=== PATIENT | male | born 1970 | race Caucasian/White ===

== ENCOUNTER 2024-01-30 17:06 | Emergency (ER) | payer MEDICAID ==
[2024-01-30 17:39] LABS: BASOPHILS ABSOLUTE AUTO 0.1 K/mm3 (0.0-0.2); BASOPHILS PERCENT AUTO 1.5 % (0.0-1.0); EOSINOPHILS PERCENT AUTO 0.5 % (0.0-6.0); HEMATOCRIT 46.4 % (42.0-52.0); HEMOGLOBIN 16.3 gm/dl (14.0-18.0); IMMATURE GRAN ABSOLUTE AUTO 0.01 K/mm3 (0.00-0.05); IMMATURE GRAN PERCENT AUTO 0.2 % (0.0-0.4); LYMPHOCYTES ABSOLUTE AUTO 2.1 K/mm3 (1.0-4.8); LYMPHOCYTES PERCENT AUTO 34.6 % (24.0-44.0); MEAN CORPUSCULAR HEMOGLOBIN 32.1 pg (28.0-32.0); MEAN CORPUSCULAR HGB CONC 35.1 g/dl (32.0-36.0); MEAN CORPUSCULAR VOLUME 91.5 fl (83.0-99.0); MEAN PLATELET VOLUME 9.7 fl (9.4-12.4); MONOCYTES ABSOLUTE AUTO 0.7 K/mm3 (0.0-0.8); MONOCYTES PERCENT AUTO 10.6 % (0.0-8.0); NEUTROPHILS ABSOLUTE AUTO 3.2 K/mm3 (1.8-7.7); NEUTROPHILS PERCENT AUTO 52.6 % (41.0-71.0); PLATELET COUNT,PLT 202 K/mm3 (150-400); RED BLOOD CELL COUNT 5.07 M/mm3 (4.52-5.90); WHITE BLOOD CELL COUNT,WBC 6.15 K/mm3 (3.9-11.3)
[2024-01-30 18:08] LABS: A/G RATIO 0.9 (1-2); ALBUMIN 3.6 g/dl (3.4-5.0); ANION GAP 19.4 (5-15); BILIRUBIN TOTAL 0.5 mg/dL (0.2-1.0); CALCIUM 8.2 mg/dL (8.5-10.1); EST CRCL DRUG DOSING (CG) 79.87 mL/min; MAGNESIUM 1.7 mg/dL (1.8-2.4); POTASSIUM,K 3.4 mEq/L (3.5-5.1); PROTEIN TOTAL,TP 7.7 g/dl (6.4-8.2)
[2024-01-30] MEDS: Sodium Chloride 0.9% 10 ML Syringe FLUSH PRN (19:28)
[2024-01-30] MEDS: Sodium Chloride 0.9% 45 ML IV SCH (19:28)
[2024-01-30] MEDS: Iopamidol 755 Mg/ML 100 ML Bottle IVPUSH ONE (19:28)
[2024-01-30] MEDS: Azithromycin 250 MG Tab PO ONE (20:26)
[2024-01-30] MEDS: Albuterol 6.7 GM Inhaler INH ONE (20:26)
== END 2024-01-30 20:35 | disposition home or self-care (01) ==
LOC: JD.ED 17:06
DX: J40 Bronchitis, not specified as acute or chronic (principal); R07.9 Chest pain, unspecified; I10 Essential (primary) hypertension; F17.210 Nicotine dependence, cigarettes, uncomplicated; Z79.2 Long term (current) use of antibiotics
CPT/HCPCS: 36415; 71045; 71045-26; 71275; 71275-26; 80053; 83735; 84484; 85025; 85379; 87428-QW; 93005; 99285; A9270-GY; J3490; Q9967

== ENCOUNTER 2024-08-23 13:07 | Emergency (ER) | payer SELFPAY ==
[2024-08-23 13:42] LABS: BASOPHILS ABSOLUTE AUTO 0.1 K/mm3 (0.0-0.2); BASOPHILS PERCENT AUTO 1.4 % (0.0-1.0); EOSINOPHILS ABSOLUTE AUTO 0.1 K/mm3 (0.0-0.4); HEMATOCRIT 46.3 % (42.0-52.0); HEMOGLOBIN 16.6 gm/dl (14.0-18.0); IMMATURE GRAN ABSOLUTE AUTO 0.01 K/mm3 (0.00-0.05); IMMATURE GRAN PERCENT AUTO 0.2 % (0.0-0.4); LYMPHOCYTES ABSOLUTE AUTO 2.3 K/mm3 (1.0-4.8); LYMPHOCYTES PERCENT AUTO 39.4 % (24.0-44.0); MEAN CORPUSCULAR HEMOGLOBIN 33.3 pg (28.0-32.0); MEAN CORPUSCULAR HGB CONC 35.9 g/dl (32.0-36.0); MEAN CORPUSCULAR VOLUME 92.8 fl (83.0-99.0); MEAN PLATELET VOLUME 9.6 fl (9.4-12.4); MONOCYTES ABSOLUTE AUTO 0.5 K/mm3 (0.0-0.8); MONOCYTES PERCENT AUTO 8.1 % (0.0-8.0); NEUTROPHILS ABSOLUTE AUTO 2.9 K/mm3 (1.8-7.7); NEUTROPHILS PERCENT AUTO 49.9 % (41.0-71.0); PLATELET COUNT,PLT 200 K/mm3 (150-400); RED BLOOD CELL COUNT 4.99 M/mm3 (4.52-5.90); WHITE BLOOD CELL COUNT,WBC 5.89 K/mm3 (3.9-11.3)
[2024-08-23] MEDS: Albuterol/Ipratropium 3.0-0.5 MG/3 ML Neb Soln NEB ONE (13:44)
[2024-08-23 14:07] LABS: ALBUMIN 3.8 g/dl (3.4-5.0); ANION GAP 19.5 (5-15); BILIRUBIN TOTAL 0.5 mg/dL (0.2-1.0); BUN/CREATININE RATIO 14.4 (14-18); CALCIUM 8.4 mg/dL (8.5-10.1); CREATININE 0.9 mg/dL (0.7-1.3); EST CRCL DRUG DOSING (CG) 84.67 mL/min; MAGNESIUM 1.7 mg/dL (1.8-2.4); POTASSIUM,K 3.5 mEq/L (3.5-5.1); PROTEIN TOTAL,TP 7.7 g/dl (6.4-8.2)
[2024-08-23] MEDS: Azithromycin 250 MG Tab PO ONE (14:18)
[2024-08-23] MEDS: Lisinopril 20 MG Tab PO STA (14:18)
[2024-08-23] MEDS: predniSONE 20 MG Tab PO ONE (14:19)
[2024-08-23] MEDS ORDERED: Sodium Chloride 0.9% 100 ML IV SCH (15:15)
[2024-08-23] MEDS: Iopamidol 755 Mg/ML 100 ML Bottle IVPUSH ONE (15:22)
[2024-08-23] MEDS: LORazepam 2 MG/ML SDV IVPUSH ONE (15:34)
[2024-08-23] MEDS: Sodium Chloride 0.9% 1,000 ML IV SCH (15:34)
== END 2024-08-23 16:40 | disposition home or self-care (01) ==
LOC: JD.ED 13:07
DX: J44.0 Chronic obstructive pulmonary disease with (acute) lower respiratory infection (principal); J20.9 Acute bronchitis, unspecified; F17.210 Nicotine dependence, cigarettes, uncomplicated; I10 Essential (primary) hypertension; E78.00 Pure hypercholesterolemia, unspecified; Z91.148 Patient's other noncompliance with medication regimen for other reason; Z79.899 Other long term (current) drug therapy; Z88.0 Allergy status to penicillin
CPT/HCPCS: 36415; 71045; 71275; 80053; 83735; 83880; 84484; 85025; 85379; 93005; 94640; 96374; 99285; A9270; J2060; J7030; J7512; J7620; Q9967

== ENCOUNTER 2024-10-30 12:55 | Inpatient (IN) | payer BC ==
[2024-10-30 14:11] LABS: BASOPHILS ABSOLUTE AUTO 0.1 K/mm3 (0.0-0.2); BASOPHILS PERCENT AUTO 1.7 % (0.0-1.0); EOSINOPHILS ABSOLUTE AUTO 0.1 K/mm3 (0.0-0.4); EOSINOPHILS PERCENT AUTO 2.1 % (0.0-6.0); IMMATURE GRAN ABSOLUTE AUTO 0.00 K/mm3 (0.00-0.05); IMMATURE GRAN PERCENT AUTO 0.0 % (0.0-0.4); LYMPHOCYTES ABSOLUTE AUTO 2.6 K/mm3 (1.0-4.8); LYMPHOCYTES PERCENT AUTO 48.9 % (24.0-44.0); MEAN PLATELET VOLUME 9.9 fl (9.4-12.4); MONOCYTES ABSOLUTE AUTO 0.3 K/mm3 (0.0-0.8); MONOCYTES PERCENT AUTO 4.9 % (0.0-8.0); NEUTROPHILS ABSOLUTE AUTO 2.3 K/mm3 (1.8-7.7); NEUTROPHILS PERCENT AUTO 42.4 % (41.0-71.0); NRBC ABSOLUTE 0.00 (0.00-0.02); NRBC PERCENT 0.0 % (0.0-0.2); PLATELET COUNT,PLT 314 K/mm3 (150-400); RED BLOOD CELL COUNT 3.95 M/mm3 (4.52-5.90); WHITE BLOOD CELL COUNT,WBC 5.36 K/mm3 (3.9-11.3)
[2024-10-30 14:24] LABS: D-DIMER QUANTITATIVE 0.24 mg/L (0.19-0.50); INR 1.03
[2024-10-30 14:25] LABS: PTT,PARTIAL THROMBOPLSTIN TIME 24.2 SECONDS (21.7-31.4)
[2024-10-30 14:39] LABS: A/G RATIO 1.0 (1-2); ALANINE AMINOTRANSFERASE,ALT 29.0 U/L (16-63); ASPARTATE AMNIOTRANSFERASE,AST 32.0 U/L (15-37); BILIRUBIN TOTAL 0.3 mg/dL (0.2-1.0); BLOOD UREA NITROGEN,BUN 73.0 mg/dL (7-18); CARBON DIOXIDE,CO2 25.0 mEq/L (21-32); CHLORIDE,CL 100.0 mEq/L (98-107); CREATININE 4.1 mg/dL (0.7-1.3); EST CRCL DRUG DOSING (CG) 19.26 mL/min; ESTIMATED GFR 16.0 mL/min (>60); ETHANOL BLOOD MEDICAL 0.22 gm% (0.00); GLUCOSE RANDOM 101.0 mg/dL (70-99); POTASSIUM,K 5.5 mEq/L (3.5-5.1); PROTEIN TOTAL,TP 7.9 g/dl (6.4-8.2); SODIUM,NA 138.0 mEq/L (136-145); TROPONIN I HIGH SENSITIVITY 8.0 pg/mL (<=76)
[2024-10-30 16:03] LABS: BUPRENORPHINE SCREEN,URINE NEGATIVE (CUTOFF=10); METHADONE SCREEN, URINE NEGATIVE (CUT0FF=200); METHAMPHETAMINES SCREEN, URINE NEGATIVE (CUTOFF=500); OXYCODONE SCREEN,URINE NEGATIVE (CUT0FF=100); THC SCREEN,URINE 20 NG/ML NEGATIVE (CUTOFF=50)
[2024-10-30 16:05] LABS: AMPHETAMINES SCREEN, URINE NEGATIVE (CUTOFF=500)
[2024-10-30] MEDS: Insulin Regular, Human 100 Units/ML 10 ML Vial IV ONE (16:16)
[2024-10-30] MEDS: 50% Dextrose in Water 50 ML Syringe IVPUSH ONE (16:17)
[2024-10-30 16:22] LABS: APPEARANCE,URINE CLEAR (Clear); GLUCOSE,URINE NEGATIVE (Negative); OCCULT BLOOD,URINE 1+ (Negative)
[2024-10-30 16:29] LABS: EPITHELIAL CELLS,URINE 0-5 /hpf (0-5)
[2024-10-30 16:30] LABS: LACTATE DEHYDROGENASE,LDH 212.0 U/L (85-227)
[2024-10-30] MEDS: Calcium Gluconate 10% 1 GM/10 ML SDV IVPUSH ONE (16:31)
[2024-10-30] MEDS ORDERED: Ondansetron 4 MG/2 ML SDV IV PRN (17:18)
[2024-10-30 20:22] LABS: BLOOD UREA NITROGEN,BUN 62.0 mg/dL (7-18); CARBON DIOXIDE,CO2 25.0 mEq/L (21-32); CHLORIDE,CL 105.0 mEq/L (98-107); EST CRCL DRUG DOSING (CG) 26.28 mL/min; ESTIMATED GFR 25.0 mL/min (>60); GLUCOSE RANDOM 138.0 mg/dL (70-99); POTASSIUM,K 5.0 mEq/L (3.5-5.1); SODIUM,NA 141.0 mEq/L (136-145)
[2024-10-30 20:48] LABS: CREATININE 2.9 mg/dL (0.7-1.3)
[2024-10-31 05:32] LABS: BASOPHILS ABSOLUTE AUTO 0.0 K/mm3 (0.0-0.2); BASOPHILS PERCENT AUTO 0.5 % (0.0-1.0); EOSINOPHILS ABSOLUTE AUTO 0.4 K/mm3 (0.0-0.4); EOSINOPHILS PERCENT AUTO 4.5 % (0.0-6.0); IMMATURE GRAN ABSOLUTE AUTO 0.03 K/mm3 (0.00-0.05); IMMATURE GRAN PERCENT AUTO 0.4 % (0.0-0.4); LYMPHOCYTES ABSOLUTE AUTO 1.0 K/mm3 (1.0-4.8); LYMPHOCYTES PERCENT AUTO 12.4 % (24.0-44.0); MEAN PLATELET VOLUME 10.3 fl (9.4-12.4); MONOCYTES ABSOLUTE AUTO 0.6 K/mm3 (0.0-0.8); MONOCYTES PERCENT AUTO 7.3 % (0.0-8.0); NEUTROPHILS ABSOLUTE AUTO 6.2 K/mm3 (1.8-7.7); NEUTROPHILS PERCENT AUTO 74.9 % (41.0-71.0); NRBC ABSOLUTE 0.00 (0.00-0.02); NRBC PERCENT 0.0 % (0.0-0.2); PLATELET COUNT,PLT 291 K/mm3 (150-400); RED BLOOD CELL COUNT 3.52 M/mm3 (4.52-5.90); WHITE BLOOD CELL COUNT,WBC 8.31 K/mm3 (3.9-11.3)
[2024-10-31 05:52] LABS: A/G RATIO 1.0 (1-2); ALANINE AMINOTRANSFERASE,ALT 27.0 U/L (16-63); ASPARTATE AMNIOTRANSFERASE,AST 24.0 U/L (15-37); BILIRUBIN TOTAL 1.1 mg/dL (0.2-1.0); BLOOD UREA NITROGEN,BUN 50.0 mg/dL (7-18); CARBON DIOXIDE,CO2 26.0 mEq/L (21-32); CHLORIDE,CL 101.0 mEq/L (98-107); CREATININE 2.0 mg/dL (0.7-1.3); EST CRCL DRUG DOSING (CG) 38.1 mL/min; ESTIMATED GFR 39.0 mL/min (>60); GLUCOSE RANDOM 138.0 mg/dL (70-99); PHOSPHORUS 3.2 mg/dL (2.6-4.7); POTASSIUM,K 5.2 mEq/L (3.5-5.1); PROTEIN TOTAL,TP 7.6 g/dl (6.4-8.2); SODIUM,NA 138.0 mEq/L (136-145)
[2024-10-31] MEDS: Heparin Sodium 5,000 Units/ML Vial SUBCUT SCH (09:23)
[2024-11-01 05:30] LABS: BASOPHILS ABSOLUTE AUTO 0.1 K/mm3 (0.0-0.2); BASOPHILS PERCENT AUTO 0.6 % (0.0-1.0); EOSINOPHILS ABSOLUTE AUTO 0.0 K/mm3 (0.0-0.4); EOSINOPHILS PERCENT AUTO 0.0 % (0.0-6.0); IMMATURE GRAN ABSOLUTE AUTO 0.03 K/mm3 (0.00-0.05); IMMATURE GRAN PERCENT AUTO 0.4 % (0.0-0.4); LYMPHOCYTES ABSOLUTE AUTO 1.5 K/mm3 (1.0-4.8); LYMPHOCYTES PERCENT AUTO 17.7 % (24.0-44.0); MEAN PLATELET VOLUME 10.5 fl (9.4-12.4); MONOCYTES ABSOLUTE AUTO 0.5 K/mm3 (0.0-0.8); MONOCYTES PERCENT AUTO 6.2 % (0.0-8.0); NEUTROPHILS ABSOLUTE AUTO 6.2 K/mm3 (1.8-7.7); NEUTROPHILS PERCENT AUTO 75.1 % (41.0-71.0); NRBC ABSOLUTE 0.00 (0.00-0.02); NRBC PERCENT 0.0 % (0.0-0.2); PLATELET COUNT,PLT 265 K/mm3 (150-400); RED BLOOD CELL COUNT 3.33 M/mm3 (4.52-5.90); WHITE BLOOD CELL COUNT,WBC 8.25 K/mm3 (3.9-11.3)
[2024-11-01 06:01] LABS: A/G RATIO 1.0 (1-2); ALANINE AMINOTRANSFERASE,ALT 27.0 U/L (16-63); ASPARTATE AMNIOTRANSFERASE,AST 21.0 U/L (15-37); BILIRUBIN TOTAL 0.8 mg/dL (0.2-1.0); BLOOD UREA NITROGEN,BUN 43.0 mg/dL (7-18); CARBON DIOXIDE,CO2 25.0 mEq/L (21-32); CHLORIDE,CL 101.0 mEq/L (98-107); CREATININE 1.8 mg/dL (0.7-1.3); EST CRCL DRUG DOSING (CG) 42.34 mL/min; ESTIMATED GFR 44.0 mL/min (>60); GLUCOSE RANDOM 137.0 mg/dL (70-99); PHOSPHORUS 3.4 mg/dL (2.6-4.7); POTASSIUM,K 4.9 mEq/L (3.5-5.1); PROTEIN TOTAL,TP 7.2 g/dl (6.4-8.2); SODIUM,NA 137.0 mEq/L (136-145)
[2024-11-01] MEDS: Magnesium Sulfate 2 GM/50 mL 2 GM in Premix Bag 1 BAG IV ONE (08:02)
[2024-11-02 05:42] LABS: BASOPHILS ABSOLUTE AUTO 0.1 K/mm3 (0.0-0.2); BASOPHILS PERCENT AUTO 0.5 % (0.0-1.0); EOSINOPHILS ABSOLUTE AUTO 0.2 K/mm3 (0.0-0.4); EOSINOPHILS PERCENT AUTO 1.3 % (0.0-6.0); IMMATURE GRAN ABSOLUTE AUTO 0.03 K/mm3 (0.00-0.05); IMMATURE GRAN PERCENT AUTO 0.3 % (0.0-0.4); LYMPHOCYTES ABSOLUTE AUTO 4.2 K/mm3 (1.0-4.8); LYMPHOCYTES PERCENT AUTO 36.6 % (24.0-44.0); MEAN PLATELET VOLUME 10.5 fl (9.4-12.4); MONOCYTES ABSOLUTE AUTO 0.7 K/mm3 (0.0-0.8); MONOCYTES PERCENT AUTO 5.9 % (0.0-8.0); NEUTROPHILS ABSOLUTE AUTO 6.4 K/mm3 (1.8-7.7); NEUTROPHILS PERCENT AUTO 55.4 % (41.0-71.0); NRBC ABSOLUTE 0.00 (0.00-0.02); NRBC PERCENT 0.0 % (0.0-0.2); PLATELET COUNT,PLT 248 K/mm3 (150-400); RED BLOOD CELL COUNT 3.28 M/mm3 (4.52-5.90); WHITE BLOOD CELL COUNT,WBC 11.45 K/mm3 (3.9-11.3)
[2024-11-02 06:20] LABS: A/G RATIO 1.0 (1-2); ALANINE AMINOTRANSFERASE,ALT 27.0 U/L (16-63); ASPARTATE AMNIOTRANSFERASE,AST 24.0 U/L (15-37); BILIRUBIN TOTAL 0.8 mg/dL (0.2-1.0); BLOOD UREA NITROGEN,BUN 33.0 mg/dL (7-18); CARBON DIOXIDE,CO2 24.0 mEq/L (21-32); CHLORIDE,CL 101.0 mEq/L (98-107); CREATININE 1.4 mg/dL (0.7-1.3); EST CRCL DRUG DOSING (CG) 54.43 mL/min; ESTIMATED GFR 60.0 mL/min (>60); GLUCOSE RANDOM 105.0 mg/dL (70-99); POTASSIUM,K 4.0 mEq/L (3.5-5.1); PROTEIN TOTAL,TP 6.9 g/dl (6.4-8.2); SODIUM,NA 136.0 mEq/L (136-145)
[2024-11-02] MEDS: Magnesium Sulfate 2 GM/50 mL 2 GM in Premix Bag 1 BAG IV ONE (08:44)
[2024-11-03 04:17] LABS: BASOPHILS ABSOLUTE AUTO 0.1 K/mm3 (0.0-0.2); BASOPHILS PERCENT AUTO 0.6 % (0.0-1.0); EOSINOPHILS ABSOLUTE AUTO 0.1 K/mm3 (0.0-0.4); EOSINOPHILS PERCENT AUTO 1.1 % (0.0-6.0); IMMATURE GRAN ABSOLUTE AUTO 0.03 K/mm3 (0.00-0.05); IMMATURE GRAN PERCENT AUTO 0.2 % (0.0-0.4); LYMPHOCYTES ABSOLUTE AUTO 4.3 K/mm3 (1.0-4.8); LYMPHOCYTES PERCENT AUTO 35.5 % (24.0-44.0); MEAN PLATELET VOLUME 10.5 fl (9.4-12.4); MONOCYTES ABSOLUTE AUTO 0.7 K/mm3 (0.0-0.8); MONOCYTES PERCENT AUTO 5.5 % (0.0-8.0); NEUTROPHILS ABSOLUTE AUTO 6.9 K/mm3 (1.8-7.7); NEUTROPHILS PERCENT AUTO 57.1 % (41.0-71.0); NRBC ABSOLUTE 0.00 (0.00-0.02); NRBC PERCENT 0.0 % (0.0-0.2); PLATELET COUNT,PLT 253 K/mm3 (150-400); RED BLOOD CELL COUNT 3.32 M/mm3 (4.52-5.90); WHITE BLOOD CELL COUNT,WBC 12.09 K/mm3 (3.9-11.3)
[2024-11-03 04:41] LABS: A/G RATIO 1.0 (1-2); ALANINE AMINOTRANSFERASE,ALT 33.0 U/L (16-63); ASPARTATE AMNIOTRANSFERASE,AST 24.0 U/L (15-37); BILIRUBIN TOTAL 0.7 mg/dL (0.2-1.0); BLOOD UREA NITROGEN,BUN 27.0 mg/dL (7-18); CARBON DIOXIDE,CO2 26.0 mEq/L (21-32); CHLORIDE,CL 99.0 mEq/L (98-107); CREATININE 1.4 mg/dL (0.7-1.3); EST CRCL DRUG DOSING (CG) 54.43 mL/min; ESTIMATED GFR 60.0 mL/min (>60); GLUCOSE RANDOM 106.0 mg/dL (70-99); POTASSIUM,K 4.0 mEq/L (3.5-5.1); PROTEIN TOTAL,TP 7.0 g/dl (6.4-8.2); SODIUM,NA 135.0 mEq/L (136-145)
== END 2024-11-03 16:31 | disposition home or self-care (01) | DRG 469 ==
LOC: JD.ED 12:55 → JD.MS 15:47
PROVIDERS: ADMIT Family Medicine; ATTEND Family Medicine
DX: N17.9 Acute kidney failure, unspecified (principal); E86.0 Dehydration; E78.00 Pure hypercholesterolemia, unspecified; I10 Essential (primary) hypertension; J44.9 Chronic obstructive pulmonary disease, unspecified; L40.9 Psoriasis, unspecified; I30.9 Acute pericarditis, unspecified; F17.200 Nicotine dependence, unspecified, uncomplicated; F10.129 Alcohol abuse with intoxication, unspecified; E87.5 Hyperkalemia; T50.2X5A Adverse effect of carbonic-anhydrase inhibitors, benzothiadiazides and other diuretics, initial encounter; Y92.89 Other specified places as the place of occurrence of the external cause; Z88.0 Allergy status to penicillin; Z79.899 Other long term (current) drug therapy
CPT/HCPCS: 36415; 70450; 70450-26; 71045; 71045-26; 80048; 80053; 80306; 80307; 81001; 82550; 82947; 83615; 83735; 83880; 84100; 84132; 84484; 84550; 85025; 85379; 85610; 85652; 85730; 86140; 87040; 93005; 93306; 94640; 94761; 96360; 96361; 99285-25; A9270-GY; J0612; J1644; J1815-GY; J3475; J7030; J7512; S5010